=== PATIENT | male | born 1995 | race African-American/Black ===

== ENCOUNTER 2017-10-30 12:12 | Emergency (ER) | payer MEDICAID ==
--- NOTE | 2017-10-30 13:02 | RAD ---
CHEST TWO VIEWS: History: Chest pain Comparison: Chest one view, 03-14-12 FINDINGS: Lungs are clear. No pneumothorax or effusion. Cardiomediastinal silhouette and mediastinal contours a re within normal limits. IMPRESSION: No acute intrathoracic abnormality. POS: [facility]
== END 2017-10-30 13:20 | disposition home or self-care (01) ==
LOC: ERS 12:12
DX: F43.9 Reaction to severe stress, unspecified (principal)
CPT/HCPCS: 71046; 93005

== ENCOUNTER 2021-08-05 20:29 | Emergency (ER) | payer MEDICAID ==
[2021-08-05] MEDS ORDERED: Boostrix 0.5 ML (Tdap) VIAL ONE (20:47)
[2021-08-05] MEDS ORDERED: Lidocaine 1% PF 5 ML VIAL ONE (20:47)
== END 2021-08-05 21:38 | disposition home or self-care (01) ==
LOC: ERS 20:29
DX: S01.511A Laceration without foreign body of lip, initial encounter (principal); Z23 Encounter for immunization; Y04.0XXA Assault by unarmed brawl or fight, initial encounter
CPT/HCPCS: 12051; 90471; 90715

== ENCOUNTER 2021-08-10 14:20 | Emergency (ER) | payer MEDICAID | END 2021-08-10 14:50 | disposition home or self-care (01) | LOC: ERS 14:20 | DX: S01.511D Laceration without foreign body of lip, subsequent encounter (principal); X58.XXXD Exposure to other specified factors, subsequent encounter ==

== ENCOUNTER 2022-10-18 22:59 | Emergency (ER) | payer OTHER | END 2022-10-19 01:07 | disposition home or self-care (01) | LOC: ERS 22:59 | DX: M54.9 Dorsalgia, unspecified (principal); M79.605 Pain in left leg; M79.604 Pain in right leg | CPT/HCPCS: 93005 ==

== ENCOUNTER 2022-10-21 13:07 | Emergency (ER) | payer OTHER ==
[2022-10-21] MEDS ORDERED: Ketorolac Tromethamine 30 MG/ML VIAL ONE (14:37)
== END 2022-10-21 14:49 | disposition home or self-care (01) ==
LOC: ERS 13:07
DX: M25.512 Pain in left shoulder (principal)
CPT/HCPCS: 96372; J1885